=== PATIENT | male | born 1995 | race Caucasian/White ===

== ENCOUNTER → 2017-11-14 | Outpatient (CLI) | payer BC ==
--- NOTE | 2017-11-14 13:40 | DIAGNOSTIC IMAGING REPORT ---
THORACIC SPINE 3 VIEWS ROUTINE HISTORY: Pain. DORSALGIA,UNSPECIFIED COMPARISON: None. FINDINGS: There is no fracture. Mild scoliosis. Disc spaces are preserved. IMPRESSION: Mild scoliosis. Otherwise negative study. The above report was generated using voice recognition software. It may contain grammatical, syntax or spelling errors. Electronically signed by: Jagdish Duque M.D. 11/14/2017 1:39 PM Dictated Date/Time: 11/14/2017 1:37 PM
== END | disposition home or self-care (01) ==
LOC: C.RAD1850 13:27
PROVIDERS: ATTEND Family Medicine
DX: M54.9 Dorsalgia, unspecified (principal); M41.9 Scoliosis, unspecified